=== PATIENT | female | born 1960 | race Caucasian/White ===

== ENCOUNTER → 2019-08-07 | Day surgery (SDC) | payer BC, SELFPAY | PROVIDERS: Family Provider Physician Assistant Medical; PCP Physician Assistant Medical; Visit Provider Physician Assistant Medical | DX: Z45.2 Encounter for adjustment and management of vascular access device (principal) | CPT/HCPCS: 96523; G0463; J1642 ==

== ENCOUNTER 2019-09-17 08:10 | Outpatient (CLI) | payer BC, SELFPAY ==
[2019-09-17 08:25] VITALS: BP 92/59; PULSE 92; RESP 18; TEMP 36.8; O2SAT 91; BMI 29.2
== END 2019-09-17 08:11 | disposition home or self-care (01) ==
LOC: GILAB 08:16
PROVIDERS: Family Provider Physician Assistant Medical; PCP Physician Assistant Medical; Visit Provider Internal Medicine
DX: Z45.2 Encounter for adjustment and management of vascular access device (principal)
CPT/HCPCS: 96368

== ENCOUNTER 2019-12-28 13:49 | Outpatient (CLI) | payer BC, SELFPAY ==
[2019-12-28 14:30] VITALS: BP 159/76; PULSE 76; RESP 18; TEMP 36.9; O2SAT 99
[2019-12-28 15:13] VITALS: BMI 38.9
--- NOTE | 2019-12-28 16:42 | W.PM.OPSUD ---
Surgery/Procedure H&P Update DATE OF PROCEDURE: December 28, 2019 DATE H&P PERFORMED: 12/24/19 H&P UPDATE INFORMATION: I have reviewed H&P completed within last 30 days, I have examined patient prior to procedure and No changes to prior documentation PLANNED PROCEDURE: Operation Date: 12/28/19 14:10 Proposed Procedures p PEG Tube Exchange 30040 K94.23(Not Applicable) - Michael Perales MD
--- NOTE | 2019-12-28 16:44 | PM.OP ---
Operative Report Date of procedure: December 28, 2019 Pre-op Diagnosis: Nonfunctioning feeding tube Post-op diagnosis: same Procedure Done: Exchange of 14 [place] feeding tube Pathology: none sent Surgeon: Michael Perales Anesthesia: None Procedure: After consent was obtained the existing 14 [place] feeding tube was cut since the balloon could not be decompressed. A new 14 [place] feeding tube was introduced and balloon inflated with 7 cc of saline. Sterile dressings applied. Patient tolerated procedure well.
--- NOTE | 2020-01-02 07:54 | SUR.OPER ---
12/28/19 Dr. Perales at bedside to replace g-tube. A 14 [place] low profile g-tube exchanged per Dr. Perales.
== END 2019-12-28 13:50 | disposition home or self-care (01) ==
PROVIDERS: PCP Physician Assistant Medical; Visit Provider Physician Assistant Medical
DX: K94.23 Gastrostomy malfunction (principal)
CPT/HCPCS: 12345; 43760; 43762; 96368; J1642